=== PATIENT | female | born 1955 | race Caucasian/White ===

== ENCOUNTER → 2020-12-13 | Day surgery (SDC) | payer MEDICARE ==
[2020-12-07 12:51] VITALS: BMI 36.6
[~2020-12-13] MED LIST: SODIUM CHLORIDE 0.9% 1,000 ML IV SCH
[2020-12-13 06:43] VITALS: BP 135/67; PULSE 55; RESP 16; TEMP 97.8
--- NOTE | 2020-12-13 08:18 | PN ---
PROGRESS NOTE Mrs. Loya is a 65-year-old female with history of cardiomyopathy, mild coronary artery disease and evidence of atrial fibrillation. She was scheduled to undergo JYOTSNA guided cardioversion. She presented today back in sinus mechanism after the initiation of amiodarone as an outpatient. She is feeling better. Her breathing is stable. She denies any chest pain or dizziness. She should be able to be discharged home today and continue her present medical regimen with decreasing the dose of her metoprolol tartrate to 50 mg twice a day because of the bradycardia and will be followed as an outpatient. She will continue anticoagulation as present. MMODL / IJN: [id number] /
== END | disposition home or self-care (01) ==
LOC: CATHCVL 06:01
PROVIDERS: ATTEND Internal Medicine Interventional Cardiology
DX: I48.11 Longstanding persistent atrial fibrillation (principal); I25.10 Atherosclerotic heart disease of native coronary artery without angina pectoris; I10 Essential (primary) hypertension; I42.8 Other cardiomyopathies; E78.2 Mixed hyperlipidemia; Z87.891 Personal history of nicotine dependence; Z88.1 Allergy status to other antibiotic agents; Z88.0 Allergy status to penicillin; Z88.8 Allergy status to other drugs, medicaments and biological substances; Z79.01 Long term (current) use of anticoagulants; Z79.899 Other long term (current) drug therapy

== ENCOUNTER → 2021-01-22 | Outpatient (CLI) | payer MEDICARE ==
--- NOTE | 2021-01-24 10:11 | BD ---
EXAMINATION TYPE: Axial Bone Density DATE OF EXAM: 01/22/2021 COMPARISON: NONE CLINICAL HISTORY: Postmenopausal female. Age related osteoporosis. Height: 63 Weight: 208.7 FRAX RISK QUESTIONS: Alcohol (3 or more units per day): no Family History (Parent hip fracture): no Glucocorticoids (More than 3mos): no (Ex: prednisone, prednisolone, methylprednisolone, dexamethasone, and hydrocortisone). History of Fracture in Adulthood: no Secondary Osteoporosis: 1. Type 1 Diabetes: no 2. Hyperthyroidism: no 3. Menopause before 45: no 4. Malnutrition: no 5. Chronic liver disease: no Rheumatoid Arthritis: no Current Tobacco Use: no RISK FACTORS HISTORY OF: Surgery to Spine/Hip(right/left)/Wrist (right/left): no Family History of Osteoporosis: no Active: yes Diet low in dairy products/other sources of calcium: no Postmenopausal woman: age 48 Lost more than 2 inches in height since high school: yes MEDICATIONS: scanned into pacs Additional History: EXAM MEASUREMENTS: Bone mineral densitometry was performed using the [employer]. Bone mineral density as measured about the Lumbar spine is: ----- L1-L4(G/cm2): 1.537 T Score Values are as follows: ----- L2: 2.9 ----- L3: 3.3 ----- L4: 3.1 ----- L1-L4: 3.0 Bone mineral density : baseline Bone mineral density about the R hip (g/cm2): 1.369 Bone mineral density about the L hip (g/cm2): 1.276 T Score values are as follows: -----R Neck: 2.4 -----L Neck: 1.7 -----R Total: 0.6 -----L Total: 1.2 Bone mineral density : baseline IMPRESSION: Normal (Values between +1 and -1 indicate normal bone mass). Consider repeating this study in 5 year s or sooner if there is some new clinical indication. NOTE: T-SCORE=SD OF THE YOUNG ADULT MEAN.
--- NOTE | 2021-01-24 14:48 | MM ---
Reason for exam: screening (asymptomatic). Last mammogram was performed 1 year and 6 months ago. History: Patient is postmenopausal. Benign MG stereo VAD BX RT of the right breast, May 15, 2014. Physical Findings: A clinical breast exam by your physician is recommended on an annual basis and results should be correlated with mammographic findings. MG 3D Screening Mammo W/Cad Bilateral CC, MLO, and XCCL view(s) were taken. Prior study comparison: August 01, 2019, mammogram, performed at [facility]. April 21, 2014, right breast MG work up mamm w CAD RT. April 14, 2014, bilateral MG screening mammo w CAD. There are scattered fibroglandular densities. There is no discrete abnormality. No significant changes when compared with prior studies. ASSESSMENT: Negative, BI-RAD 1 RECOMMENDATION: Routine screening mammogram of both breasts in 1 year.
== END | disposition home or self-care (01) ==
LOC: RADMAMWWP 12:05
PROVIDERS: ATTEND Internal Medicine
DX: Z12.31 Encounter for screening mammogram for malignant neoplasm of breast (principal); Z78.0 Asymptomatic menopausal state; M81.8 Other osteoporosis without current pathological fracture
CPT/HCPCS: 77063; 77067; 77080